=== PATIENT | female | born 1950 | race Two or more races ===

== ENCOUNTER 2016-03-20 21:13 | Inpatient (IN) | payer MEDICARE ==
[~2016-03-20] VITALS: Ht 160 cm; Wt 118.6 kg
[~2016-03-20 21:13] MED LIST: ACETTAB85 PO; ALEN70TA55 PO; CYCL5TAB PO; DIG0125T PO; FOLI1TAB51 PO; GABA300C8 PO; GUA5DMLQ PO; LEVA1.2512 IN; LEVO500T3 PO; METO25TA5 PO; PANT1INJ3 PO; PROM25TA5 PO; RIVA20TA PO; ROPI2TAB4 OR; SERT-160 OR; SIMBICORT PO; TEMA30CA PO
[2016-03-20 22:05] LABS: Basophils # (auto) 0.1 uL; Basophils % (auto) 0.5 % (0.0-2.0); DEFINITIVE VIEW TRANSMISSION; Eosinophils # (auto) 0 uL; Eosinophils % (auto) 0.2 % (0.0-7.0); Hematocrit 35.8 % (36.0-46.0); Hemoglobin 11.5 g/dL (12.2-16.2); Lymphocytes # (auto) 2.8 uL; Lymphocytes % (auto) 26.4 % (10.0-50.0); Mean Corpuscular Hemoglobin 29.7 pg (28.0-32.0); Mean Corpuscular Hgb Conc. 32.1 g/dL (32.0-36.0); Mean Corpuscular Volume 92.3 fL (80.0-100.0); Mean Platelet Volume 6.8 fL (7.4-10.4); Monocytes # (auto) 0.3 uL; Monocytes % (auto) 2.8 % (0.0-12.0); Neutrophils # (auto) 7.4 uL; Neutrophils % (auto) 70.1 % (37.0-80.0); Platelet Count (auto) 368 10^3/uL (140-450); Red Cell Distribution Width 19.6 % (11.6-16.0); White Blood Cell 10.5 10^3/uL (4.4-10.8)
[2016-03-20 22:24] LABS: Albumin 3.5 g/dL (3.4-5.0); BUN/Creatinine Ratio 17.1; Calcium 8.4 mg/dL (8.5-10.1); Magnesium 2.3 mg/dL (1.6-2.6); Potassium 4.5 mmol/L (3.5-5.1); Stomatocytes Few
[2016-03-20 22:25] LABS: Anisocytosis Slight; Ovalocytes FEW; Platelet Estimate Adequate
[2016-03-20 22:31] LABS: B-Type Natriuretic Peptide 27.47 pg/mL (0-100)
[2016-03-20 22:36] LABS: Bilirubin, Total 0.4 mg/dL (0.2-1.0); Total Protein 6.1 g/dL (6.4-8.2)
[2016-03-20 22:40] LABS: INR 1.14 (0.9-1.15)
[2016-03-20] MEDS ORDERED: methylPREDNISolone SOD SUCC 125 MG/2 ML VL IV ONE (23:00)
[2016-03-21] MEDS ORDERED: ONDANSETRON HCL 4 MG/2 ML VIAL IV ONE (01:15)
[2016-03-21] MEDS ORDERED: MORPHINE SULFATE 4 MG/ML SYRG IV ONE (01:15)
[2016-03-21] MEDS ORDERED: METOPROLOL TARTRATE 50 MG TAB PO ONE (01:45)
[2016-03-21] MEDS ORDERED: CYCLOBENZAPRINE HCL 10 MG TAB PO PRN (07:15)
[2016-03-21] MEDS ORDERED: ONDANSETRON HCL 4 MG/2 ML VIAL IV PRN (07:15)
[2016-03-21] MEDS ORDERED: ACETAMINOPHEN 325 MG TAB PO PRN (07:15)
[2016-03-21] MEDS ORDERED: TEMAZEPAM 15 MG CAP PO PRN (07:15)
[2016-03-21] MEDS ORDERED: MORPHINE SULF INJ 2 MG/ML SYRINGE 1ML IV PRN (07:15)
[2016-03-21 09:15] VITALS: BP 120/55
[2016-03-21] MEDS: cefTRIAXone 1GM/50ML D5W 50 ML IV SCH (09:15)
[2016-03-21] MEDS ORDERED: PATIENTS OWN MEDICATION (xarelto 20 MG) PO SCH (10:00)
[2016-03-21] MEDS ORDERED: METOPROLOL TARTRATE 25 MG TAB PO SCH (10:00)
[2016-03-21] MEDS: PANTOPRAZOLE 40 MG TAB PO SCH (10:50)
[2016-03-21] MEDS: SERTRALINE HCL 50 MG TAB PO SCH (10:50)
[2016-03-21] MEDS: ASPirin 81 mg TAB PO SCH (10:51)
[2016-03-21] MEDS: HYDROcodone-ACET 5/325MG TAB PO PRN ×2 (10:51→17:04)
[2016-03-21] MEDS: DIGOXIN 0.125 MG TAB PO SCH (10:52)
[2016-03-21] MEDS ORDERED: D5W 5% 1,000 ML IV SCH (12:00)
[2016-03-21 13:00] VITALS: BP 114/69
[2016-03-21] MEDS: GABAPENTIN 300 MG CAP PO SCH ×2 (13:58→22:34)
[2016-03-21] MEDS: methylPREDNISolone SOD SUCC 40 MG/ML VL IV SCH ×2 (13:59→22:33)
[2016-03-21] MEDS: IPRATROPIUM BROM 0.5 MG/2.5ML INH SOL NEB PRN ×2 (16:30→22:19)
[2016-03-21] MEDS: ALBUTEROL SULF 2.5 MG/0.5ML(0.5%) NEB SOLN NEB PRN ×2 (16:30→22:19)
[2016-03-21 17:00] VITALS: BP 137/69
[2016-03-21] MEDS: RIVAROXABAN 15 MG TAB PO SCH (17:56)
[2016-03-21] MEDS ORDERED: RIVAROXABAN 20 MG TAB PO SCH (18:00)
[2016-03-21] MEDS ORDERED: DILTIAZEM HCL 25 MG/5 ML VIAL IV ONE (20:15)
[2016-03-21 22:00] VITALS: BP 140/80
[2016-03-22] VITALS (9 sets, daily range): BP systolic 116–143; BP diastolic 62–81
[2016-03-22] MEDS: IPRATROPIUM BROM 0.5 MG/2.5ML INH SOL NEB PRN ×4 (03:47→14:20)
[2016-03-22] MEDS: ALBUTEROL SULF 2.5 MG/0.5ML(0.5%) NEB SOLN NEB PRN ×4 (03:47→14:20)
[2016-03-22] MEDS ORDERED: FUROSEMIDE 20 MG/2 ML VIAL IV ONE (04:00)
[2016-03-22] MEDS: GABAPENTIN 300 MG CAP PO SCH ×4 (05:45→22:23)
[2016-03-22] MEDS: methylPREDNISolone SOD SUCC 40 MG/ML VL IV SCH ×3 (05:46→22:25)
[2016-03-22 05:53] LABS: Basophils # (auto) 0 uL; Basophils % (auto) 0.1 % (0.0-2.0); DEFINITIVE VIEW TRANSMISSION; Eosinophils # (auto) 0 uL; Hematocrit 36.3 % (36.0-46.0); Hemoglobin 11.6 g/dL (12.2-16.2); Lymphocytes # (auto) 0.8 uL; Lymphocytes % (auto) 4.2 % (10.0-50.0); Mean Corpuscular Hemoglobin 29.9 pg (28.0-32.0); Mean Corpuscular Volume 93.3 fL (80.0-100.0); Mean Platelet Volume 7.2 fL (7.4-10.4); Monocytes # (auto) 0.4 uL; Monocytes % (auto) 2.3 % (0.0-12.0); Neutrophils # (auto) 16.7 uL; Neutrophils % (auto) 93.4 % (37.0-80.0); Platelet Count (auto) 375 10^3/uL (140-450); Red Cell Distribution Width 19.3 % (11.6-16.0); White Blood Cell 17.9 10^3/uL (4.4-10.8)
[2016-03-22 06:05] LABS: INR 1.03 (0.9-1.15); Prothrombin Time 10.6 sec (9.37-12.3)
[2016-03-22 06:10] LABS: Albumin 3.4 g/dL (3.4-5.0); BUN/Creatinine Ratio 22.1; Bilirubin, Total 0.3 mg/dL (0.2-1.0); Calcium 8.5 mg/dL (8.5-10.1); Magnesium 2.4 mg/dL (1.6-2.6); Potassium 4.2 mmol/L (3.5-5.1); Total Protein 6.5 g/dL (6.4-8.2)
[2016-03-22] MEDS: cefTRIAXone 1GM/50ML D5W 50 ML IV SCH (08:35)
[2016-03-22] MEDS: DIGOXIN 0.125 MG TAB PO SCH (09:40)
[2016-03-22] MEDS: METOPROLOL TARTRATE 50 MG TAB PO SCH ×3 (09:40→22:24)
[2016-03-22] MEDS: PANTOPRAZOLE 40 MG TAB PO SCH (09:41)
[2016-03-22] MEDS: SERTRALINE HCL 50 MG TAB PO SCH (09:41)
[2016-03-22] MEDS: ASPirin 81 mg TAB PO SCH (09:41)
[2016-03-22] MEDS: NITROGLYCERIN 0.4 MG SL TAB SL PRN ×3 (10:11→10:32)
[2016-03-22] MEDS: RIVAROXABAN 15 MG TAB PO SCH (18:03)
[2016-03-22] MEDS ORDERED: FUROSEMIDE 40 MG/4 ML VIAL IV ONE (23:15)
[2016-03-23] VITALS (7 sets, daily range): BP systolic 123–143; BP diastolic 59–81
[2016-03-23] MEDS: methylPREDNISolone SOD SUCC 40 MG/ML VL IV SCH ×3 (06:55→22:09)
[2016-03-23] MEDS: GABAPENTIN 300 MG CAP PO SCH ×3 (06:55→22:09)
[2016-03-23 07:09] LABS: Basophils # (auto) 0 uL; Eosinophils # (auto) 0 uL; Hematocrit 35.1 % (36.0-46.0); Hemoglobin 11.3 g/dL (12.2-16.2); Lymphocytes # (auto) 0.7 uL; Lymphocytes % (auto) 4.9 % (10.0-50.0); Mean Corpuscular Hemoglobin 29.9 pg (28.0-32.0); Mean Corpuscular Hgb Conc. 32.2 g/dL (32.0-36.0); Mean Corpuscular Volume 92.7 fL (80.0-100.0); Mean Platelet Volume 7.5 fL (7.4-10.4); Monocytes # (auto) 0.2 uL; Monocytes % (auto) 1.2 % (0.0-12.0); Neutrophils # (auto) 13.1 uL; Neutrophils % (auto) 93.9 % (37.0-80.0); Platelet Count (auto) 311 10^3/uL (140-450); Red Cell Distribution Width 18.6 % (11.6-16.0)
[2016-03-23 07:13] LABS: INR 1.02 (0.9-1.15); Prothrombin Time 10.5 sec (9.37-12.3)
[2016-03-23 07:22] LABS: Calcium 8.5 mg/dL (8.5-10.1); Magnesium 2.6 mg/dL (1.6-2.6); Potassium 3.7 mmol/L (3.5-5.1)
[2016-03-23 07:24] LABS: BUN/Creatinine Ratio 26.6
[2016-03-23] MEDS: ALBUTEROL SULF 2.5 MG/0.5ML(0.5%) NEB SOLN NEB PRN (07:51)
[2016-03-23] MEDS: IPRATROPIUM BROM 0.5 MG/2.5ML INH SOL NEB PRN (07:51)
[2016-03-23] MEDS: cefTRIAXone 1GM/50ML D5W 50 ML IV SCH (08:59)
[2016-03-23] MEDS: SERTRALINE HCL 50 MG TAB PO SCH (10:04)
[2016-03-23] MEDS: ASPirin 81 mg TAB PO SCH (10:04)
[2016-03-23] MEDS: PANTOPRAZOLE 40 MG TAB PO SCH (10:04)
[2016-03-23] MEDS: DIGOXIN 0.125 MG TAB PO SCH (10:04)
[2016-03-23] MEDS: METOPROLOL TARTRATE 50 MG TAB PO SCH ×2 (10:05→22:10)
[2016-03-23] MEDS: HYDROcodone-ACET 5/325MG TAB PO PRN ×4 (10:09→22:09)
[2016-03-23] MEDS: RIVAROXABAN 15 MG TAB PO SCH (18:18)
[2016-03-24] VITALS (9 sets, daily range): BP systolic 115–137; BP diastolic 58–74
[2016-03-24] MEDS: ALBUTEROL SULF 2.5 MG/0.5ML(0.5%) NEB SOLN NEB SCH ×4 (00:10→18:00)
[2016-03-24] MEDS: ACETYLCYSTEINE 10 %(100MG/ML) SOL 4ML NEB SCH ×4 (00:10→18:00)
[2016-03-24] MEDS: IPRATROPIUM BROM 0.5 MG/2.5ML INH SOL NEB SCH ×4 (00:10→18:00)
[2016-03-24] MEDS: HYDROcodone-ACET 5/325MG TAB PO PRN (04:58)
[2016-03-24] MEDS: GABAPENTIN 300 MG CAP PO SCH ×3 (06:00→22:21)
[2016-03-24] MEDS: methylPREDNISolone SOD SUCC 40 MG/ML VL IV SCH ×3 (06:00→22:21)
[2016-03-24 07:05] LABS: BUN/Creatinine Ratio 28.9; Calcium 8.5 mg/dL (8.5-10.1); Magnesium 2.7 mg/dL (1.6-2.6)
[2016-03-24 07:14] LABS: INR 1.09 (0.9-1.15); Prothrombin Time 11.2 sec (9.37-12.3)
[2016-03-24 07:35] LABS: Basophils # (auto) 0 uL; Eosinophils # (auto) 0 uL; Eosinophils % (auto) 0.1 % (0.0-7.0); Hematocrit 34.8 % (36.0-46.0); Hemoglobin 11.1 g/dL (12.2-16.2); Lymphocytes # (auto) 0.6 uL; Lymphocytes % (auto) 5.6 % (10.0-50.0); Mean Corpuscular Hemoglobin 29.8 pg (28.0-32.0); Mean Corpuscular Hgb Conc. 31.9 g/dL (32.0-36.0); Mean Corpuscular Volume 93.4 fL (80.0-100.0); Mean Platelet Volume 7.7 fL (7.4-10.4); Monocytes # (auto) 0.2 uL; Monocytes % (auto) 2.2 % (0.0-12.0); Neutrophils # (auto) 10.2 uL; Neutrophils % (auto) 92.1 % (37.0-80.0); Platelet Count (auto) 339 10^3/uL (140-450); Red Cell Distribution Width 18.9 % (11.6-16.0); White Blood Cell 11.1 10^3/uL (4.4-10.8)
[2016-03-24] MEDS: cefTRIAXone 1GM/50ML D5W 50 ML IV SCH (08:52)
[2016-03-24] MEDS: ASPirin 81 mg TAB PO SCH (09:52)
[2016-03-24] MEDS: SERTRALINE HCL 50 MG TAB PO SCH (09:52)
[2016-03-24] MEDS: METOPROLOL TARTRATE 50 MG TAB PO SCH ×2 (09:52→22:21)
[2016-03-24] MEDS: DIGOXIN 0.125 MG TAB PO SCH (09:52)
[2016-03-24] MEDS: PANTOPRAZOLE 40 MG TAB PO SCH (09:52)
[2016-03-24] MEDS: RIVAROXABAN 15 MG TAB PO SCH (18:01)
[2016-03-25] MEDS: IPRATROPIUM BROM 0.5 MG/2.5ML INH SOL NEB SCH ×4 (01:08→19:29)
[2016-03-25] MEDS: ACETYLCYSTEINE 10 %(100MG/ML) SOL 4ML NEB SCH ×4 (01:08→19:29)
[2016-03-25] MEDS: ALBUTEROL SULF 2.5 MG/0.5ML(0.5%) NEB SOLN NEB SCH ×4 (01:09→19:29)
[2016-03-25 04:50] VITALS: BP 106/67
[2016-03-25 06:11] LABS: Potassium 4.1 mmol/L (3.5-5.1)
[2016-03-25 06:12] LABS: Basophils # (auto) 0 uL; Eosinophils # (auto) 0 uL; Hematocrit 34.7 % (36.0-46.0); Hemoglobin 11.1 g/dL (12.2-16.2); Lymphocytes # (auto) 0.6 uL; Lymphocytes % (auto) 6.4 % (10.0-50.0); Mean Corpuscular Hemoglobin 29.6 pg (28.0-32.0); Mean Corpuscular Hgb Conc. 32.1 g/dL (32.0-36.0); Mean Corpuscular Volume 92.1 fL (80.0-100.0); Mean Platelet Volume 7.6 fL (7.4-10.4); Monocytes # (auto) 0.2 uL; Monocytes % (auto) 2.4 % (0.0-12.0); Neutrophils # (auto) 9.1 uL; Neutrophils % (auto) 91.2 % (37.0-80.0); Platelet Count (auto) 301 10^3/uL (140-450); Red Cell Distribution Width 18.3 % (11.6-16.0); White Blood Cell 9.9 10^3/uL (4.4-10.8)
[2016-03-25 06:14] LABS: BUN/Creatinine Ratio 27.6
[2016-03-25] MEDS: GABAPENTIN 300 MG CAP PO SCH ×3 (06:21→21:46)
[2016-03-25] MEDS: methylPREDNISolone SOD SUCC 40 MG/ML VL IV SCH ×3 (06:22→21:46)
[2016-03-25] MEDS: PANTOPRAZOLE 40 MG TAB PO SCH (08:36)
[2016-03-25] MEDS: ASPirin 81 mg TAB PO SCH (08:36)
[2016-03-25] MEDS: cefTRIAXone 1GM/50ML D5W 50 ML IV SCH (08:36)
[2016-03-25] MEDS: SERTRALINE HCL 50 MG TAB PO SCH (08:36)
[2016-03-25] MEDS: DIGOXIN 0.125 MG TAB PO SCH (08:40)
[2016-03-25] MEDS: METOPROLOL TARTRATE 50 MG TAB PO SCH ×2 (08:41→21:47)
[2016-03-25 09:00] VITALS: BP 128/78
[2016-03-25] MEDS ORDERED: CLINDAMYCIN 300MG IV 50 ML IV SCH (11:00)
[2016-03-25 13:29] VITALS: BP 142/93
[2016-03-25 17:00] VITALS: BP 131/66
[2016-03-25] MEDS: RIVAROXABAN 15 MG TAB PO SCH (17:39)
[2016-03-25] MEDS: CLINDAMYCIN 300MG IV 50 ML IV SCH (17:39)
[2016-03-25 21:54] VITALS: BP 125/68
[2016-03-26] MEDS: ACETYLCYSTEINE 10 %(100MG/ML) SOL 4ML NEB SCH ×4 (00:42→19:27)
[2016-03-26] MEDS: IPRATROPIUM BROM 0.5 MG/2.5ML INH SOL NEB SCH ×4 (00:42→19:27)
[2016-03-26] MEDS: ALBUTEROL SULF 2.5 MG/0.5ML(0.5%) NEB SOLN NEB SCH ×4 (00:42→19:27)
[2016-03-26] MEDS: CLINDAMYCIN 300MG IV 50 ML IV SCH ×3 (02:35→18:06)
[2016-03-26 04:46] VITALS: BP 159/93
[2016-03-26 06:26] LABS: Basophils # (auto) 0 uL; Basophils % (auto) 0.4 % (0.0-2.0); Eosinophils # (auto) 0 uL; Hemoglobin 11.5 g/dL (12.2-16.2); Lymphocytes # (auto) 0.8 uL; Lymphocytes % (auto) 8.6 % (10.0-50.0); Mean Corpuscular Hemoglobin 29.5 pg (28.0-32.0); Mean Corpuscular Hgb Conc. 32.1 g/dL (32.0-36.0); Mean Platelet Volume 7.6 fL (7.4-10.4); Monocytes # (auto) 0.2 uL; Monocytes % (auto) 1.6 % (0.0-12.0); Neutrophils # (auto) 8.2 uL; Neutrophils % (auto) 89.4 % (37.0-80.0); Platelet Count (auto) 289 10^3/uL (140-450); Red Cell Distribution Width 18.3 % (11.6-16.0); White Blood Cell 9.2 10^3/uL (4.4-10.8)
[2016-03-26 06:41] LABS: Albumin 2.8 g/dL (3.4-5.0); BUN/Creatinine Ratio 34.7; Potassium 4.4 mmol/L (3.5-5.1)
[2016-03-26 06:44] LABS: Bilirubin, Total 0.2 mg/dL (0.2-1.0); Total Protein 5.8 g/dL (6.4-8.2)
[2016-03-26] MEDS: GABAPENTIN 300 MG CAP PO SCH ×3 (06:49→21:34)
[2016-03-26] MEDS: methylPREDNISolone SOD SUCC 40 MG/ML VL IV SCH ×3 (06:49→21:34)
[2016-03-26 08:19] VITALS: BP 158/90
[2016-03-26] MEDS: cefTRIAXone 1GM/50ML D5W 50 ML IV SCH (08:24)
[2016-03-26] MEDS: SERTRALINE HCL 50 MG TAB PO SCH (08:31)
[2016-03-26] MEDS: ASPirin 81 mg TAB PO SCH (08:31)
[2016-03-26] MEDS: PANTOPRAZOLE 40 MG TAB PO SCH (08:31)
[2016-03-26] MEDS: DIGOXIN 0.125 MG TAB PO SCH (08:31)
[2016-03-26] MEDS: METOPROLOL TARTRATE 50 MG TAB PO SCH ×2 (08:31→21:34)
[2016-03-26 12:40] VITALS: BP 154/74
[2016-03-26 16:41] VITALS: BP 140/72
[2016-03-26] MEDS: RIVAROXABAN 15 MG TAB PO SCH (18:06)
[2016-03-26] MEDS: HYDROcodone-ACET 5/325MG TAB PO PRN (19:55)
[2016-03-26 21:56] VITALS: BP 139/71
[2016-03-27] MEDS: CLINDAMYCIN 300MG IV 50 ML IV SCH ×3 (01:45→12:46)
[2016-03-27] MEDS: ALBUTEROL SULF 2.5 MG/0.5ML(0.5%) NEB SOLN NEB SCH ×3 (02:00→13:22)
[2016-03-27] MEDS: IPRATROPIUM BROM 0.5 MG/2.5ML INH SOL NEB SCH ×3 (02:00→13:22)
[2016-03-27] MEDS: ACETYLCYSTEINE 10 %(100MG/ML) SOL 4ML NEB SCH ×3 (02:00→13:22)
[2016-03-27 04:38] VITALS: BP 154/79
[2016-03-27 05:39] LABS: Basophils # (auto) 0 uL; Eosinophils # (auto) 0 uL; Hematocrit 35.5 % (36.0-46.0); Hemoglobin 11.4 g/dL (12.2-16.2); Lymphocytes # (auto) 0.7 uL; Lymphocytes % (auto) 7.5 % (10.0-50.0); Mean Corpuscular Hemoglobin 29.3 pg (28.0-32.0); Mean Corpuscular Volume 91.4 fL (80.0-100.0); Mean Platelet Volume 7.4 fL (7.4-10.4); Monocytes # (auto) 0 uL; Monocytes % (auto) 0.5 % (0.0-12.0); Neutrophils # (auto) 8.6 uL; Platelet Count (auto) 285 10^3/uL (140-450); Red Cell Distribution Width 18.4 % (11.6-16.0); White Blood Cell 9.4 10^3/uL (4.4-10.8)
[2016-03-27 06:11] LABS: Potassium 4.7 mmol/L (3.5-5.1)
[2016-03-27] MEDS: methylPREDNISolone SOD SUCC 40 MG/ML VL IV SCH ×2 (06:11→14:47)
[2016-03-27] MEDS: GABAPENTIN 300 MG CAP PO SCH ×2 (06:11→14:47)
[2016-03-27 06:14] LABS: Albumin 2.8 g/dL (3.4-5.0); BUN/Creatinine Ratio 34.7; Calcium 8.1 mg/dL (8.5-10.1)
[2016-03-27 06:18] LABS: Bilirubin, Total 0.3 mg/dL (0.2-1.0); Total Protein 5.7 g/dL (6.4-8.2)
[2016-03-27 08:24] VITALS: BP 135/75
[2016-03-27] MEDS: METOPROLOL TARTRATE 50 MG TAB PO SCH ×2 (10:05→12:48)
[2016-03-27] MEDS: ASPirin 81 mg TAB PO SCH ×2 (10:05→12:46)
[2016-03-27] MEDS: SERTRALINE HCL 50 MG TAB PO SCH ×2 (10:05→12:48)
[2016-03-27] MEDS: DIGOXIN 0.125 MG TAB PO SCH ×2 (10:05→12:47)
[2016-03-27] MEDS: PANTOPRAZOLE 40 MG TAB PO SCH ×2 (10:05→12:48)
[2016-03-27] MEDS: cefTRIAXone 1GM/50ML D5W 50 ML IV SCH ×2 (10:05→12:46)
[2016-03-27 13:43] VITALS: BP 149/76
[2016-03-27 16:33] VITALS: BP 149/76
[2016-03-27 16:49] VITALS: BP 148/67
[2016-03-27] MEDS: RIVAROXABAN 15 MG TAB PO SCH (18:00)
== END 2016-03-27 17:40 | disposition home or self-care (01) | DRG 205 ==
LOC: EDBD 21:13 → ER 21:23 → TELE 21:24 → TELE-EAST 03-21 07:54
PROVIDERS: ADMIT Internal Medicine; ATTEND Internal Medicine
PROC: 5A09457 Assistance with Respiratory Ventilation, 24-96 Consecutive Hours, Continuous Positive Airway Pressure (ICD-10-PCS; principal; 2016-03-22)
DX: M94.0 Chondrocostal junction syndrome [Tietze] (principal); J96.20 Acute and chronic respiratory failure, unspecified whether with hypoxia or hypercapnia; J44.1 Chronic obstructive pulmonary disease with (acute) exacerbation; Z68.41 Body mass index [BMI] 40.0-44.9, adult; D68.69 Other thrombophilia; I48.1 Persistent atrial fibrillation; I48.92 Unspecified atrial flutter; I13.0 Hypertensive heart and chronic kidney disease with heart failure and stage 1 through stage 4 chronic kidney disease, or unspecified chronic kidney disease; J45.901 Unspecified asthma with (acute) exacerbation; J44.0 Chronic obstructive pulmonary disease with (acute) lower respiratory infection; N18.3 Chronic kidney disease, stage 3 (moderate); E66.01 Morbid (severe) obesity due to excess calories; F32.9 Major depressive disorder, single episode, unspecified; F41.9 Anxiety disorder, unspecified; D63.8 Anemia in other chronic diseases classified elsewhere; J20.9 Acute bronchitis, unspecified; E78.5 Hyperlipidemia, unspecified; I27.2 Other secondary pulmonary hypertension; I50.9 Heart failure, unspecified; Z87.891 Personal history of nicotine dependence; Z99.81 Dependence on supplemental oxygen; Z86.73 Personal history of transient ischemic attack (TIA), and cerebral infarction without residual deficits; Z86.718 Personal history of other venous thrombosis and embolism; Z82.49 Family history of ischemic heart disease and other diseases of the circulatory system; Z83.3 Family history of diabetes mellitus; Z80.3 Family history of malignant neoplasm of breast; Z80.0 Family history of malignant neoplasm of digestive organs; Z88.1 Allergy status to other antibiotic agents; I48.0 Paroxysmal atrial fibrillation; R07.89 Other chest pain
CPT/HCPCS: 36415; 36600; 71010; 80048; 80053; 80162; 82805; 83735; 83880; 84484; 85025; 85379; 85610; 85730; 87081; 93005; 94640; 94660; 96374; 96375; 97110; 97116; 97530; J0696; J2405; J3490

== ENCOUNTER 2017-02-23 10:54 | Emergency (ER) | payer MEDICARE, MEDICAID ==
[~2017-02-23] VITALS: Ht 160 cm; Wt 105.2 kg
[~2017-02-23 10:54] MED LIST changes: -ACETTAB85 PO; -ALEN70TA55 PO; +DEXTSYP8 PO; +DIGO1TAB35 PO; +DOX100T PO; +FURO20TA3 PO; +GABA-497 PO; -GABA300C8 PO; -GUA5DMLQ PO; -LEVO500T3 PO; +METO-516 PO; +METO25TA3 PO; +ONDA4TAB5 PO; +POTA10TA79 PO; -PROM25TA5 PO; -ROPI2TAB4 OR; -SERT-160 OR; +SIMV-13 PO; +TRAM50TA2 PO
[2017-02-23 11:32] LABS: Urine Bilirubin Negative (Negative); Urine Blood Negative /uL (Negative); Urine Color Yellow (Yellow); Urine Glucose Normal (Normal); Urine Ketone Negative (Negative); Urine Nitrite Negative (Negative); Urine RBC 2 /hpf (0 - 4); Urine Squamous Epithelial Cell FEW /hpf (<5); Urine Urobilinogen Normal (Negative)
[2017-02-23] MEDS ORDERED: KETOROLAC TROMETH 30 MG/ML 1ML VIAL IV ONE (11:45)
[2017-02-23] MEDS ORDERED: ONDANSETRON HCL 4 MG/2 ML VIAL IV ONE (11:45)
[2017-02-23] MEDS ORDERED: SODIUM CHLORIDE 0.9% 1,000 ML IV ONE (11:45)
[2017-02-23 12:41] LABS: Basophils # (auto) 0.2 uL; Basophils % (auto) 2.7 % (0.0-2.0); Eosinophils # (auto) 0.1 uL; Eosinophils % (auto) 1.6 % (0.0-7.0); Hematocrit 38.5 % (36.0-46.0); Hemoglobin 12.3 g/dL (12.2-16.2); Lymphocytes % (auto) 32.9 % (10.0-50.0); Mean Corpuscular Hemoglobin 27.5 pg (28.0-32.0); Mean Corpuscular Hgb Conc. 32.1 g/dL (32.0-36.0); Mean Corpuscular Volume 85.6 fL (80.0-100.0); Mean Platelet Volume 7.1 fL (6.9-10.8); Monocytes # (auto) 0.3 uL; Monocytes % (auto) 5.5 % (0.0-12.0); Neutrophils # (auto) 3.4 uL; Neutrophils % (auto) 57.3 % (37.0-80.0); Nucleated Red Blood Cells % 0.1 %; Platelet Count (auto) 182 10^3/uL (140-450); Red Cell Distribution Width 18.3 % (11.8-14.3); White Blood Cell 5.9 10^3/uL (4.4-10.8)
[2017-02-23 13:05] LABS: Albumin 3.2 g/dL (3.4-5.0); BUN/Creatinine Ratio 19.8; Bilirubin, Total 0.6 mg/dL (0.2-1.0); Calcium 8.5 mg/dL (8.5-10.1); Potassium 4.2 mmol/L (3.5-5.1); Total Protein 6.5 g/dL (6.4-8.2)
[2017-02-23 13:32] VITALS: BP 111/73
== END 2017-02-23 13:42 | disposition home or self-care (01) ==
LOC: ER 10:54
DX: K80.20 Calculus of gallbladder without cholecystitis without obstruction (principal); J44.1 Chronic obstructive pulmonary disease with (acute) exacerbation; I48.91 Unspecified atrial fibrillation; I13.0 Hypertensive heart and chronic kidney disease with heart failure and stage 1 through stage 4 chronic kidney disease, or unspecified chronic kidney disease; N18.9 Chronic kidney disease, unspecified; I50.9 Heart failure, unspecified; E78.5 Hyperlipidemia, unspecified; Z95.0 Presence of cardiac pacemaker; Z88.1 Allergy status to other antibiotic agents
CPT/HCPCS: 36415; 74176; 80053; 81001; 85025; 93005; 96361; 96374; 96375; 99285; J1885; J2405; J7030

== ENCOUNTER 2017-06-05 15:24 | Emergency (ER) | payer MEDICARE, MEDICAID ==
[~2017-06-05] VITALS: Ht 160 cm; Wt 104.3 kg
[~2017-06-05 15:24] MED LIST changes: +DEXT1SYP9 PO; -DEXTSYP8 PO; -GABA-497 PO; +GABA300C10 PO
[2017-06-05 16:04] VITALS: BP 125/58
[2017-06-05 16:57] LABS: BUN/Creatinine Ratio 14.7; Bilirubin, Total 0.7 mg/dL (0.2-1.0); Calcium 8.6 mg/dL (8.5-10.1); Potassium 4.8 mmol/L (3.5-5.1); Total Protein 6.4 g/dL (6.4-8.2)
[2017-06-05 17:05] LABS: Basophils # (auto) 0.1 uL; Basophils % (auto) 0.9 % (0.0-2.0); Eosinophils # (auto) 0.1 uL; Eosinophils % (auto) 1.6 % (0.0-7.0); Hematocrit 36.9 % (36.0-46.0); Lymphocytes # (auto) 2.2 uL; Lymphocytes % (auto) 27.5 % (10.0-50.0); Mean Corpuscular Hgb Conc. 32.4 g/dL (32.0-36.0); Mean Corpuscular Volume 86.4 fL (80.0-100.0); Monocytes # (auto) 0.6 uL; Monocytes % (auto) 7.9 % (0.0-12.0); Neutrophils # (auto) 4.9 uL; Neutrophils % (auto) 62.1 % (37.0-80.0); Nucleated Red Blood Cells % 0.3 %; Platelet Count (auto) 202 10^3/uL (140-450); Red Blood Cells 4.27 10^6/uL (4.0-5.20); Red Cell Distribution Width 19.5 % (11.8-14.3); White Blood Cell 7.9 10^3/uL (4.4-10.8)
== END 2017-06-05 18:02 | disposition home or self-care (01) ==
LOC: EDBD 15:24 → ER 15:31
DX: G89.4 Chronic pain syndrome (principal); I11.0 Hypertensive heart disease with heart failure; I50.9 Heart failure, unspecified; J44.9 Chronic obstructive pulmonary disease, unspecified; I48.91 Unspecified atrial fibrillation; E78.5 Hyperlipidemia, unspecified; Z95.0 Presence of cardiac pacemaker; Z98.890 Other specified postprocedural states; Z87.442 Personal history of urinary calculi; Z88.1 Allergy status to other antibiotic agents
CPT/HCPCS: 36415; 71045; 73030; 80053; 85025; 93005

== ENCOUNTER 2019-04-21 18:58 | Emergency (ER) | payer MEDICARE, MEDICAID ==
[~2019-04-21] VITALS: Ht 160 cm; Wt 108.9 kg
[~2019-04-21 18:58] MED LIST changes: +ALBU0.084 IN; +CARB200T4 PO; +CARV6.2551 PO; +CHOL20007 PO; -CYCL5TAB PO; -DEXT1SYP9 PO; -DIG0125T PO; -DOX100T PO; +GABA-339 PO; -GABA300C10 PO; +HYDR-4798 PO; -LEVA1.2512 IN; +LEVO500T21 PO; +MELO1TAB56 PO; -METO-516 PO; -METO25TA3 PO; +METO25TA36 PO; -METO25TA5 PO; -ONDA4TAB5 PO; +POTA-180 PO; -POTA10TA79 PO; +ROPI1TAB PO; -SIMV-13 PO; -TRAM50TA2 PO
[2019-04-21 19:46] VITALS: BP 114/43
[2019-04-21 20:23] LABS: Basophils # (auto) 0 uL; Eosinophils # (auto) 0 uL; Hematocrit 33.5 % (36.0-46.0); Hemoglobin 10.9 g/dL (12.2-16.2); Monocytes # (auto) 0.4 uL; Neutrophils # (auto) 3.1 uL; Red Cell Distribution Width 17.8 % (11.8-14.3)
[2019-04-21 20:25] LABS: Basophils % (auto) 0.9 % (0.0-2.0); Lymphocytes # (auto) 0.6 uL; Lymphocytes % (auto) 14.2 % (10.0-50.0); Mean Corpuscular Hemoglobin 26.4 pg (28.0-32.0); Mean Corpuscular Hgb Conc. 32.7 g/dL (32.0-36.0); Neutrophils % (auto) 74.9 % (37.0-80.0); Nucleated Red Blood Cells % 0.2 %; Platelet Count (auto) 205 10^3/uL (140-450); Red Blood Cells 4.13 10^6/uL (4.0-5.20); White Blood Cell 4.1 10^3/uL (4.4-10.8)
[2019-04-21 20:40] LABS: Alanine Aminotransferase 14 U/L (13-56); Albumin 3.2 g/dL (3.4-5.0); Anion Gap 9 (5-15); Aspartate Aminotransferase 17 U/L (15-37); BUN/Creatinine Ratio 13.7; Blood Urea Nitrogen 14 mg/dL (7-18); Carbon Dioxide 25 mmol/L (21-32); Chloride 107 mmol/L (98-107); GFR African American 69 mL/min; GFR Non-African American 57 mL/min; Glucose 103 mg/dL (74-106); Potassium 3.4 mmol/L (3.5-5.1); Sodium 141 mmol/L (136-145)
[2019-04-21 20:42] LABS: Alkaline Phosphatase 87 U/L (45-117); Bilirubin, Total 0.2 mg/dL (0.2-1.0); Total Protein 6.4 g/dL (6.4-8.2)
== END 2019-04-21 22:41 | disposition left against medical advice (07) ==
LOC: ER 18:58
DX: R50.9 Fever, unspecified (principal); Z53.21 Procedure and treatment not carried out due to patient leaving prior to being seen by health care provider
CPT/HCPCS: 36415; 71045; 80053; 83605; 83880; 85025

== ENCOUNTER 2021-08-18 15:14 | Inpatient (IN) | payer MEDICARE, MEDICAID ==
[~2021-08-18] VITALS: Ht 157.5 cm; Wt 127.7 kg
[~2021-08-18 15:14] MED LIST changes: -LEVO500T21 PO; +LEVO500T31 PO; -MELO1TAB56 PO; -SIMBICORT PO
[2021-08-18] MEDS ORDERED: SODIUM CHLORIDE 0.9% 1,000 ML IV ONE (20:00)
[2021-08-18 20:38] LABS: Hematocrit 27.4 % (36.0-46.0); Mean Corpuscular Volume 75.3 fL (80.0-100.0); White Blood Cell 7.4 10^3/uL (4.4-10.8)
[2021-08-18 20:39] LABS: Basophils # (auto) 0.1 10 ^3/uL (0-0.2); Basophils % (auto) 1.5 % (0.0-2.0); Eosinophils # (auto) 0 10 ^3/uL (0-0.8); Eosinophils % (auto) 0.2 % (0.0-7.0); Hemoglobin 8.4 g/dL (12.2-16.2); Lymphocytes # (auto) 0.5 10 ^3/uL (0.4-5.4); Lymphocytes % (auto) 7.4 % (10.0-50.0); Mean Corpuscular Hemoglobin 23.2 pg (28.0-32.0); Mean Corpuscular Hgb Conc. 30.8 g/dL (32.0-36.0); Monocytes # (auto) 0.2 10 ^3/uL (0-1.3); Monocytes % (auto) 3.3 % (0.0-12.0); Neutrophils # (auto) 6.5 10 ^3/uL (1.6-8.6); Neutrophils % (auto) 87.6 % (37.0-80.0); Red Blood Cells 3.64 10^6/uL (4.0-5.20); Red Cell Distribution Width 19.9 % (11.8-14.3)
[2021-08-18 20:58] LABS: Albumin 3.4 g/dL (3.4-5.0); BUN/Creatinine Ratio 21.4; Calcium 8.3 mg/dL (8.5-10.1); Potassium 4.3 mmol/L (3.5-5.1)
[2021-08-18 21:01] LABS: Bilirubin, Total 0.3 mg/dL (0.2-1.0); Total Protein 6.3 g/dL (6.4-8.2)
[2021-08-18] MEDS ORDERED: FUROSEMIDE 40 MG/4 ML VIAL IV ONE (21:15)
[2021-08-18] MEDS ORDERED: ONDANSETRON HCL 4 MG/2 ML VIAL IV PRN (22:15)
[2021-08-18] MEDS ORDERED: ACETAMINOPHEN 325 MG TAB PO PRN (22:15)
[2021-08-18] MEDS ORDERED: HYDROcodone-ACET 5/325MG TAB PO PRN (22:15)
[2021-08-18] MEDS ORDERED: DOCUSATE SOD 100 MG CAP PO PRN (22:15)
[2021-08-18 22:18] VITALS: BP 134/58
[2021-08-18 22:44] LABS: Urine Bacteria NONE SEEN /hpf (None Seen); Urine Blood Negative /uL (Negative); Urine Hyaline Cast FEW /lpf (0 - 2); Urine Mucus FEW (None Seen); Urine Specific Gravity 1.008 (1.001-1.035); Urine WBC <1 /hpf (0 - 5)
[2021-08-18 22:53] LABS: INR 1.1 (0.9-1.15)
[2021-08-19] MEDS ORDERED: NITROGLYCERIN 0.4 MG SL TAB SL PRN
[2021-08-19] MEDS ORDERED: MORPHINE SULFATE INJ 2 MG/ml SYRG IV PRN
[2021-08-19] MEDS: SODIUM CHLOR 0.9% PF (SALINE LOCK) 10ML VIAL/SYR IV SCH ×3 (06:00→21:34)
[2021-08-19] MEDS ORDERED: ALBUTEROL SULF HFA 90MCG INH 200DOSE IN SCH (06:00)
[2021-08-19] MEDS: FUROSEMIDE 20 MG/2 ML VIAL IV SCH ×2 (06:00→18:00)
[2021-08-19 07:06] LABS: Basophils # (auto) 0.1 10 ^3/uL (0-0.2); Eosinophils # (auto) 0.1 10 ^3/uL (0-0.8); Hemoglobin 8.4 g/dL (12.2-16.2); Monocytes # (auto) 0.4 10 ^3/uL (0-1.3); Neutrophils # (auto) 4.4 10 ^3/uL (1.6-8.6); Nucleated Red Blood Cells % 0.1 %
[2021-08-19 07:09] LABS: Basophils % (auto) 1.2 % (0.0-2.0); Eosinophils % (auto) 1.3 % (0.0-7.0); Lymphocytes # (auto) 1.1 10 ^3/uL (0.4-5.4); Lymphocytes % (auto) 18.8 % (10.0-50.0); Mean Corpuscular Hemoglobin 23.6 pg (28.0-32.0); Mean Corpuscular Hgb Conc. 31.1 g/dL (32.0-36.0); Mean Corpuscular Volume 75.8 fL (80.0-100.0); Neutrophils % (auto) 72.7 % (37.0-80.0); Red Blood Cells 3.57 10^6/uL (4.0-5.20); White Blood Cell 6.1 10^3/uL (4.4-10.8)
[2021-08-19 07:22] LABS: Albumin 3.3 g/dL (3.4-5.0); Calcium 8.4 mg/dL (8.5-10.1); Potassium 3.8 mmol/L (3.5-5.1)
[2021-08-19 07:26] LABS: BUN/Creatinine Ratio 22.8; Bilirubin, Total 0.3 mg/dL (0.2-1.0)
[2021-08-19] MEDS: CARVEDILOL 3.125 MG TAB PO SCH ×2 (10:00→21:38)
[2021-08-19] MEDS ORDERED: APIXABAN 5 MG TAB PO SCH (10:00)
[2021-08-19] MEDS ORDERED: FAMOTIDINE (10MG/ML) 2ML VL IV SCH (10:00)
[2021-08-19] MEDS ORDERED: methylPREDNISolone SOD SUCC 40 MG/ML VL IV ONE (11:00)
[2021-08-19] MEDS: ALBUTEROL SULF 2.5 MG/0.5ML(0.5%) NEB SOLN NEB PRN (11:38)
[2021-08-19] MEDS: FOLIC ACID 1 MG TAB PO SCH (12:30)
[2021-08-19] MEDS: MULTIPLE VITAMIN TAB PO SCH (12:31)
[2021-08-19 13:00] VITALS: BP 126/51
[2021-08-19] MEDS ORDERED: ROSU5TAB5 PO (14:43)
[2021-08-19] MEDS ORDERED: FLUO-125 PO (14:43)
[2021-08-19] MEDS ORDERED: FURO20TA3 PO (14:43)
[2021-08-19] MEDS ORDERED: PRED10TA PO (15:15)
[2021-08-19] MEDS ORDERED: DILT-29 PO (15:15)
[2021-08-19 17:00] VITALS: BP 113/47
[2021-08-19] MEDS ORDERED: RIVAROXABAN 20 MG TAB PO SCH (18:00)
[2021-08-19] MEDS: MORPHINE SULFATE INJ 2 MG/ml SYRG IV PRN (18:06)
[2021-08-19] MEDS ORDERED: IPRATROPIUM BROM 0.5 MG/2.5ML INH SOL NEB PRN (18:30)
[2021-08-19] MEDS: AZITHROMYCIN 250 MG TAB PO ONE ×2 (19:00→21:34)
[2021-08-19] MEDS: methylPREDNISolone SOD SUCC 40 MG/ML VL IV SCH (21:35)
[2021-08-19] MEDS: carBAMazepine 200 MG TAB PO SCH (21:36)
[2021-08-19] MEDS: FLUoxetine HCL 20 MG CAP PO SCH (21:36)
[2021-08-19 21:44] VITALS: BP 107/47
[2021-08-20 05:00] VITALS: BP 149/60
[2021-08-20] MEDS: FUROSEMIDE 20 MG/2 ML VIAL IV SCH (05:31)
[2021-08-20] MEDS: SODIUM CHLOR 0.9% PF (SALINE LOCK) 10ML VIAL/SYR IV SCH ×2 (05:32→14:33)
[2021-08-20] MEDS: MORPHINE SULFATE INJ 2 MG/ml SYRG IV PRN (06:26)
[2021-08-20 08:00] VITALS: BP 143/46
[2021-08-20] MEDS: ALBUTEROL SULF 2.5 MG/0.5ML(0.5%) NEB SOLN NEB PRN (08:01)
[2021-08-20 09:00] VITALS: BP 143/46
[2021-08-20] MEDS: carBAMazepine 200 MG TAB PO SCH (09:31)
[2021-08-20] MEDS: MULTIPLE VITAMIN TAB PO SCH (09:31)
[2021-08-20] MEDS: FOLIC ACID 1 MG TAB PO SCH (09:31)
[2021-08-20] MEDS: CARVEDILOL 3.125 MG TAB PO SCH (09:32)
[2021-08-20] MEDS: FLUoxetine HCL 20 MG CAP PO SCH (09:32)
[2021-08-20] MEDS: methylPREDNISolone SOD SUCC 40 MG/ML VL IV SCH (09:33)
[2021-08-20] MEDS ORDERED: AZITHROMYCIN 250 MG TAB PO SCH (10:00)
[2021-08-20] MEDS ORDERED: POTASSIUM CHL 20 Meq TABLET PO SCH (10:00)
[2021-08-20] MEDS ORDERED: PANTOPRAZOLE 40 MG TAB PO SCH (10:00)
[2021-08-20] MEDS ORDERED: METOPROLOL SUCCINATE XL 50 MG TAB PO SCH (10:00)
[2021-08-20 13:00] VITALS: BP 141/49
[2021-08-20] MEDS ORDERED: AZIT250T9 PO (13:58)
[2021-08-20 14:48] VITALS: BP 141/49
[2021-08-20 17:00] VITALS: BP 125/64
== END 2021-08-20 17:36 | disposition home or self-care (01) | DRG 291 ==
LOC: ER 15:14 → EDBD 15:14 → TELE 23:57 → TELE-WESTW 08-19 08:27
PROVIDERS: ADMIT Nurse Practitioner Family; ATTEND Internal Medicine
DX: I13.0 Hypertensive heart and chronic kidney disease with heart failure and stage 1 through stage 4 chronic kidney disease, or unspecified chronic kidney disease (principal); N17.0 Acute kidney failure with tubular necrosis; J96.21 Acute and chronic respiratory failure with hypoxia; I50.43 Acute on chronic combined systolic (congestive) and diastolic (congestive) heart failure; J44.1 Chronic obstructive pulmonary disease with (acute) exacerbation; D68.69 Other thrombophilia; Z68.43 Body mass index [BMI] 50.0-59.9, adult; I42.9 Cardiomyopathy, unspecified; I48.91 Unspecified atrial fibrillation; E66.01 Morbid (severe) obesity due to excess calories; E78.5 Hyperlipidemia, unspecified; Z20.822 Contact with and (suspected) exposure to COVID-19; I34.0 Nonrheumatic mitral (valve) insufficiency; N18.9 Chronic kidney disease, unspecified
CPT/HCPCS: 36415; 71045; 71250; 80053; 80162; 81001; 83880; 84484; 85025; 85379; 85610; 86850; 86900; 86901; 93005; 93306; 94640; 96374; 96375; G0378; J3490

== ENCOUNTER 2022-01-27 21:51 | Inpatient (IN) | payer MEDICARE, MEDICAID ==
[~2022-01-27] VITALS: Ht 154.9 cm; Wt 126.0 kg
[~2022-01-27 21:51] MED LIST changes: +AZIT250T9 PO; +DILT-29 PO; +FLUO-125 PO; +PRED10TA PO; +ROSU5TAB5 PO
[2022-01-27] MEDS ORDERED: SODIUM CHLORIDE 0.9% 500 ML IV ONE (22:30)
[2022-01-27 22:56] LABS: Basophils # (auto) 0.1 10 ^3/uL (0-0.2); Eosinophils # (auto) 0.1 10 ^3/uL (0-0.8); Hemoglobin 8.1 g/dL (12.2-16.2); Lymphocytes # (auto) 1.2 10 ^3/uL (0.4-5.4); Mean Corpuscular Volume 70.5 fL (80.0-100.0); Monocytes # (auto) 0.6 10 ^3/uL (0-1.3); Neutrophils # (auto) 6.3 10 ^3/uL (1.6-8.6)
[2022-01-27 22:57] LABS: Basophils % (auto) 0.9 % (0.0-2.0); Eosinophils % (auto) 0.8 % (0.0-7.0); Lymphocytes % (auto) 14.4 % (10.0-50.0); Mean Corpuscular Hemoglobin 20.5 pg (28.0-32.0); Mean Corpuscular Hgb Conc. 29.1 g/dL (32.0-36.0); Monocytes % (auto) 7.1 % (0.0-12.0); Neutrophils % (auto) 76.8 % (37.0-80.0); Red Blood Cells 3.98 10^6/uL (4.0-5.20); White Blood Cell 8.3 10^3/uL (4.4-10.8)
[2022-01-27 23:12] LABS: Albumin 3.5 g/dL (3.4-5.0); BUN/Creatinine Ratio 19.1; Calcium 8.2 mg/dL (8.5-10.1); Potassium 3.6 mmol/L (3.5-5.1)
[2022-01-27 23:15] LABS: Bilirubin, Total 0.2 mg/dL (0.2-1.0); Total Protein 5.6 g/dL (6.4-8.2)
[2022-01-28] MEDS ORDERED: MORPHINE SULFATE INJ 2 MG/ml SYRG IV PRN (01:45)
[2022-01-28] MEDS ORDERED: DOCUSATE SOD 100 MG CAP PO PRN (01:45)
[2022-01-28] MEDS ORDERED: ONDANSETRON HCL 4 MG/2 ML VIAL IV PRN (01:45)
[2022-01-28] MEDS ORDERED: NITROGLYCERIN 0.4 MG SL TAB SL PRN (01:45)
[2022-01-28] MEDS ORDERED: ACETAMINOPHEN 325 MG TAB PO PRN (01:45)
[2022-01-28 02:27] LABS: Basophils # (auto) 0.1 10 ^3/uL (0-0.2); Eosinophils # (auto) 0.1 10 ^3/uL (0-0.8); Monocytes # (auto) 0.4 10 ^3/uL (0-1.3); Nucleated Red Blood Cells % 0.1 %
[2022-01-28 02:29] LABS: Basophils % (auto) 1.9 % (0.0-2.0); Hematocrit 27.6 % (36.0-46.0); Hemoglobin 8.1 g/dL (12.2-16.2); Lymphocytes # (auto) 1.3 10 ^3/uL (0.4-5.4); Lymphocytes % (auto) 18.4 % (10.0-50.0); Mean Corpuscular Hemoglobin 20.6 pg (28.0-32.0); Mean Corpuscular Hgb Conc. 29.2 g/dL (32.0-36.0); Mean Corpuscular Volume 70.5 fL (80.0-100.0); Monocytes % (auto) 5.5 % (0.0-12.0); Neutrophils # (auto) 5.2 10 ^3/uL (1.6-8.6); Neutrophils % (auto) 73.2 % (37.0-80.0); Red Blood Cells 3.91 10^6/uL (4.0-5.20); White Blood Cell 7.1 10^3/uL (4.4-10.8)
[2022-01-28 02:30] LABS: Red Cell Distribution Width 23.3 % (11.8-14.3)
[2022-01-28 02:37] LABS: Albumin 3.3 g/dL (3.4-5.0); BUN/Creatinine Ratio 21.4; Potassium 3.4 mmol/L (3.5-5.1)
[2022-01-28 02:40] LABS: Bilirubin, Total 0.3 mg/dL (0.2-1.0); Total Protein 5.8 g/dL (6.4-8.2)
[2022-01-28] MEDS: HYDROcodone-ACET 5/325MG TAB PO PRN (06:18)
[2022-01-28] MEDS: SODIUM CHLOR 0.9% PF (SALINE LOCK) 10ML VIAL/SYR IV SCH ×3 (06:19→22:00)
[2022-01-28] MEDS ORDERED: APIXABAN 5 MG TAB PO SCH (10:00)
[2022-01-28] MEDS: MULTIPLE VITAMIN TAB PO SCH (10:45)
[2022-01-28] MEDS: FLUoxetine HCL 20 MG CAP PO SCH (10:46)
[2022-01-28] MEDS: FAMOTIDINE (10MG/ML) 2ML VL IV SCH (10:46)
[2022-01-28] MEDS ORDERED: POTASSIUM EFFERVESENT TAB 25 MEQ PO ONE (12:30)
[2022-01-28 15:49] LABS: Magnesium 2.2 mg/dL (1.6-2.6)
[2022-01-28] MEDS ORDERED: RIVAROXABAN 20 MG TAB PO SCH (18:00)
[2022-01-28] MEDS: IPRATROPIUM BROM 0.5 MG/2.5ML INH SOL NEB PRN (20:37)
[2022-01-28] MEDS: ALBUTEROL SULF 2.5 MG/0.5ML(0.5%) NEB SOLN NEB PRN (20:37)
[2022-01-28 23:30] VITALS: BP 124/41
[2022-01-29 00:40] VITALS: BP 120/45
[2022-01-29] MEDS ORDERED: SACC250C PO (01:30)
[2022-01-29] MEDS ORDERED: ROPI12TA2 PO (01:30)
[2022-01-29] MEDS ORDERED: RIVSET PO (01:30)
[2022-01-29] MEDS ORDERED: METH4TAB7 PO (01:30)
[2022-01-29] MEDS ORDERED: CEFD300C2 PO (01:30)
[2022-01-29] MEDS ORDERED: FURO1TAB31 PO (01:30)
[2022-01-29] MEDS ORDERED: FERR-20 PO (01:30)
[2022-01-29] MEDS ORDERED: CHOL20007 OR (01:30)
[2022-01-29] MEDS ORDERED: HYDR-4798 PO (01:30)
[2022-01-29] MEDS ORDERED: FLUT0.05 NAS (01:30)
[2022-01-29] MEDS ORDERED: CARB200T4 PO (01:34)
[2022-01-29] MEDS ORDERED: GABA-339 PO (01:34)
[2022-01-29 04:43] VITALS: BP 125/42
[2022-01-29] MEDS: SODIUM CHLOR 0.9% PF (SALINE LOCK) 10ML VIAL/SYR IV SCH ×3 (05:07→22:29)
[2022-01-29] MEDS: FAMOTIDINE (10MG/ML) 2ML VL IV SCH (08:33)
[2022-01-29] MEDS: FLUoxetine HCL 20 MG CAP PO SCH (08:33)
[2022-01-29] MEDS: HYDROcodone-ACET 5/325MG TAB PO PRN (08:33)
[2022-01-29] MEDS: MULTIPLE VITAMIN TAB PO SCH (08:33)
[2022-01-29 09:00] VITALS: BP 125/41
[2022-01-29 10:13] LABS: Albumin 3.4 g/dL (3.4-5.0); Potassium 4.2 mmol/L (3.5-5.1)
[2022-01-29 10:16] LABS: BUN/Creatinine Ratio 23.3; Bilirubin, Total 0.3 mg/dL (0.2-1.0); Total Protein 5.9 g/dL (6.4-8.2)
[2022-01-29 10:19] LABS: Basophils # (auto) 0.1 10 ^3/uL (0-0.2); Mean Corpuscular Volume 70.3 fL (80.0-100.0); Monocytes # (auto) 0.5 10 ^3/uL (0-1.3); White Blood Cell 6.7 10^3/uL (4.4-10.8)
[2022-01-29 10:21] LABS: Basophils % (auto) 0.9 % (0.0-2.0); Eosinophils # (auto) 0.1 10 ^3/uL (0-0.8); Eosinophils % (auto) 2.2 % (0.0-7.0); Hematocrit 30.4 % (36.0-46.0); Hemoglobin 8.7 g/dL (12.2-16.2); Lymphocytes # (auto) 1.1 10 ^3/uL (0.4-5.4); Lymphocytes % (auto) 15.7 % (10.0-50.0); Mean Corpuscular Hgb Conc. 28.5 g/dL (32.0-36.0); Neutrophils % (auto) 74.2 % (37.0-80.0); Red Blood Cells 4.33 10^6/uL (4.0-5.20)
[2022-01-29 10:25] LABS: Red Cell Distribution Width 22.9 % (11.8-14.3)
[2022-01-29 13:00] VITALS: BP 129/85
[2022-01-29] MEDS ORDERED: carBAMazepine 200 MG TAB PO ONE (14:45)
[2022-01-29] MEDS ORDERED: GABAPENTIN 300 MG CAP PO ONE (14:45)
[2022-01-29] MEDS ORDERED: ONDANSETRON HCL 4 MG/2 ML VIAL IV PRN (15:00)
[2022-01-29] MEDS ORDERED: LORazepam 0.5 MG TAB PO PRN (15:00)
[2022-01-29] MEDS ORDERED: ACETAMINOPHEN 500 MG TAB PO PRN (15:00)
[2022-01-29] MEDS ORDERED: traMADol HCL 50 MG TAB PO PRN (15:00)
[2022-01-29] MEDS ORDERED: ALBUTEROL SULFATE 0.083% IN SCH (15:00)
[2022-01-29] MEDS ORDERED: PANTOPRAZOLE 40 MG/10 ML VIAL INJ IV ONE (16:00)
[2022-01-29] MEDS: SODIUM CHLORIDE 0.9% 1,000 ML IV SCH (16:56)
[2022-01-29] MEDS ORDERED: TEMAZEPAM 15 MG CAP PO SCH (18:00)
[2022-01-29 18:08] LABS: Hemoglobin 8.3 g/dL (12.2-16.2)
[2022-01-29 18:10] LABS: Hematocrit 28.4 % (36.0-46.0)
[2022-01-29 22:00] VITALS: BP 137/57
[2022-01-29] MEDS ORDERED: TEMAZEPAM 15 MG CAP PO PRN (22:00)
[2022-01-29] MEDS ORDERED: FLUoxetine HCL 20 MG CAP PO SCH (22:00)
[2022-01-29] MEDS: metroNIDAZOLE 500MG/100ML 100 ML IV SCH (22:29)
[2022-01-29] MEDS: ATORVASTATIN 20 MG TAB PO SCH (22:29)
[2022-01-29] MEDS: PANTOPRAZOLE 40 MG TAB PO SCH (22:30)
[2022-01-29] MEDS: GABAPENTIN 300 MG CAP PO SCH (22:30)
[2022-01-29] MEDS: carBAMazepine 200 MG TAB PO SCH (22:31)
[2022-01-30 01:47] LABS: Hematocrit 27.3 % (36.0-46.0); Hemoglobin 8.2 g/dL (12.2-16.2)
[2022-01-30] MEDS: SODIUM CHLORIDE 0.9% 1,000 ML IV SCH ×2 (04:29→18:58)
[2022-01-30 05:00] VITALS: BP 141/51
[2022-01-30 06:54] LABS: Basophils # (auto) 0.1 10 ^3/uL (0-0.2); Basophils % (auto) 1.5 % (0.0-2.0); Eosinophils # (auto) 0.1 10 ^3/uL (0-0.8); Eosinophils % (auto) 2.5 % (0.0-7.0); Hemoglobin 8.3 g/dL (12.2-16.2); Lymphocytes % (auto) 19.8 % (10.0-50.0); Mean Corpuscular Hemoglobin 20.4 pg (28.0-32.0); Mean Corpuscular Hgb Conc. 29.6 g/dL (32.0-36.0); Mean Corpuscular Volume 68.9 fL (80.0-100.0); Monocytes # (auto) 0.3 10 ^3/uL (0-1.3); Monocytes % (auto) 6.8 % (0.0-12.0); Neutrophils # (auto) 3.4 10 ^3/uL (1.6-8.6); Neutrophils % (auto) 69.4 % (37.0-80.0); Nucleated Red Blood Cells % 0.1 %; Red Blood Cells 4.07 10^6/uL (4.0-5.20); White Blood Cell 4.9 10^3/uL (4.4-10.8)
[2022-01-30 07:08] LABS: Red Cell Distribution Width 22.8 % (11.8-14.3)
[2022-01-30 07:09] LABS: Albumin 3.2 g/dL (3.4-5.0); Calcium 8.5 mg/dL (8.5-10.1)
[2022-01-30 07:12] LABS: BUN/Creatinine Ratio 20.2; Bilirubin, Total 0.3 mg/dL (0.2-1.0); Total Protein 5.5 g/dL (6.4-8.2)
[2022-01-30] MEDS: metroNIDAZOLE 500MG/100ML 100 ML IV SCH ×3 (08:01→21:39)
[2022-01-30] MEDS: SODIUM CHLOR 0.9% PF (SALINE LOCK) 10ML VIAL/SYR IV SCH ×3 (08:01→21:46)
[2022-01-30 08:42] VITALS: BP 122/42
[2022-01-30] MEDS ORDERED: DIGOXIN 0.125 MG TAB PO SCH (10:00)
[2022-01-30] MEDS: FAMOTIDINE (10MG/ML) 2ML VL IV SCH (10:10)
[2022-01-30] MEDS: carBAMazepine 200 MG TAB PO SCH ×2 (10:11→21:44)
[2022-01-30] MEDS: MULTIPLE VITAMIN TAB PO SCH (10:11)
[2022-01-30] MEDS: PANTOPRAZOLE 40 MG TAB PO SCH (10:12)
[2022-01-30] MEDS: GABAPENTIN 300 MG CAP PO SCH ×2 (10:12→21:44)
[2022-01-30] MEDS: FOLIC ACID 1 MG TAB PO SCH (10:12)
[2022-01-30] MEDS: MORPHINE SULFATE INJ 2 MG/ml SYRG IV PRN ×2 (10:23→15:22)
[2022-01-30] MEDS ORDERED: TEMAZEPAM 15 MG CAP PO PRN (12:15)
[2022-01-30 13:13] VITALS: BP 127/51
[2022-01-30 14:15] LABS: Urine Bacteria NONE SEEN /hpf (None Seen); Urine Blood Negative /uL (Negative); Urine Specific Gravity 1.008 (1.001-1.035); Urine WBC <1 /hpf (0 - 5)
[2022-01-30 17:00] VITALS: BP 121/40
[2022-01-30] MEDS: IPRATROPIUM BROM 0.5 MG/2.5ML INH SOL NEB PRN (19:07)
[2022-01-30] MEDS: ALBUTEROL SULF 2.5 MG/0.5ML(0.5%) NEB SOLN NEB PRN (19:07)
[2022-01-30] MEDS: ATORVASTATIN 20 MG TAB PO SCH (21:43)
[2022-01-30 22:00] VITALS: BP 155/77
[2022-01-31 00:35] LABS: Urine Bacteria FEW /hpf (None Seen); Urine Blood Negative /uL (Negative); Urine Specific Gravity 1.005 (1.001-1.035); Urine WBC 1 /hpf (0 - 5)
[2022-01-31] MEDS: SODIUM CHLORIDE 0.9% 1,000 ML IV SCH ×2 (01:50→14:55)
[2022-01-31] MEDS: MORPHINE SULFATE INJ 2 MG/ml SYRG IV PRN (04:08)
[2022-01-31 05:00] VITALS: BP 122/46
[2022-01-31] MEDS: metroNIDAZOLE 500MG/100ML 100 ML IV SCH ×3 (05:36→22:08)
[2022-01-31] MEDS: SODIUM CHLOR 0.9% PF (SALINE LOCK) 10ML VIAL/SYR IV SCH ×2 (05:44→16:29)
[2022-01-31 07:19] LABS: Basophils # (auto) 0 10 ^3/uL (0-0.2); Eosinophils # (auto) 0.1 10 ^3/uL (0-0.8); Hemoglobin 7.6 g/dL (12.2-16.2); Lymphocytes # (auto) 0.7 10 ^3/uL (0.4-5.4); Monocytes # (auto) 0.4 10 ^3/uL (0-1.3); Neutrophils # (auto) 3.3 10 ^3/uL (1.6-8.6); White Blood Cell 4.6 10^3/uL (4.4-10.8)
[2022-01-31 07:22] LABS: Hematocrit 25.9 % (36.0-46.0); Lymphocytes % (auto) 15.9 % (10.0-50.0); Mean Corpuscular Hemoglobin 20.5 pg (28.0-32.0); Mean Corpuscular Hgb Conc. 29.2 g/dL (32.0-36.0); Mean Corpuscular Volume 70.3 fL (80.0-100.0); Monocytes % (auto) 7.9 % (0.0-12.0); Neutrophils % (auto) 72.2 % (37.0-80.0); Nucleated Red Blood Cells % 0.1 %; Red Blood Cells 3.68 10^6/uL (4.0-5.20)
[2022-01-31 07:27] LABS: Red Cell Distribution Width 23.3 % (11.8-14.3)
[2022-01-31 07:28] LABS: INR 0.96 (0.9-1.15); Partial Thromboplastin Time 22.2 sec (24.6-33.4)
[2022-01-31 07:42] LABS: BUN/Creatinine Ratio 15.3; Calcium 8.3 mg/dL (8.5-10.1); Potassium 4.1 mmol/L (3.5-5.1)
[2022-01-31 07:55] VITALS: BP 112/37
[2022-01-31] MEDS: carBAMazepine 200 MG TAB PO SCH ×2 (09:48→22:02)
[2022-01-31] MEDS: FOLIC ACID 1 MG TAB PO SCH (09:48)
[2022-01-31] MEDS: PANTOPRAZOLE 40 MG/10 ML VIAL INJ IV SCH (09:48)
[2022-01-31] MEDS: GABAPENTIN 300 MG CAP PO SCH ×2 (09:48→22:02)
[2022-01-31] MEDS: MULTIPLE VITAMIN TAB PO SCH (09:49)
[2022-01-31 12:35] VITALS: BP 121/42
[2022-01-31 16:25] VITALS: BP 133/61
[2022-01-31 18:30] VITALS: BP 133/61
[2022-01-31 22:00] VITALS: BP 124/44
[2022-01-31] MEDS: ATORVASTATIN 20 MG TAB PO SCH (22:03)
[2022-01-31] MEDS: SODIUM FERR GLUC 62.5MG/5ML 125 MG in SODIUM CHL 0.9% 100 ML IV SCH (22:36)
[2022-02-01] VITALS (7 sets, daily range): BP systolic 113–145; BP diastolic 33–49
[2022-02-01] MEDS: SODIUM CHLOR 0.9% PF (SALINE LOCK) 10ML VIAL/SYR IV SCH ×4 (02:31→22:31)
[2022-02-01] MEDS: SODIUM CHLORIDE 0.9% 1,000 ML IV SCH ×2 (03:56→12:23)
[2022-02-01] MEDS: metroNIDAZOLE 500MG/100ML 100 ML IV SCH ×3 (06:20→22:18)
[2022-02-01 06:34] LABS: Basophils # (auto) 0.1 10 ^3/uL (0-0.2); Basophils % (auto) 2.4 % (0.0-2.0); Eosinophils # (auto) 0.1 10 ^3/uL (0-0.8); Eosinophils % (auto) 3.8 % (0.0-7.0); Hematocrit 25.6 % (36.0-46.0); Hemoglobin 7.4 g/dL (12.2-16.2); Lymphocytes # (auto) 0.8 10 ^3/uL (0.4-5.4); Lymphocytes % (auto) 19.5 % (10.0-50.0); Mean Corpuscular Hemoglobin 20.8 pg (28.0-32.0); Mean Corpuscular Hgb Conc. 28.8 g/dL (32.0-36.0); Mean Corpuscular Volume 72.2 fL (80.0-100.0); Monocytes # (auto) 0.3 10 ^3/uL (0-1.3); Monocytes % (auto) 8.7 % (0.0-12.0); Neutrophils # (auto) 2.5 10 ^3/uL (1.6-8.6); Neutrophils % (auto) 65.6 % (37.0-80.0); Nucleated Red Blood Cells % 0.1 %; Red Blood Cells 3.54 10^6/uL (4.0-5.20); White Blood Cell 3.9 10^3/uL (4.4-10.8)
[2022-02-01 06:50] LABS: Red Cell Distribution Width 22.5 % (11.8-14.3)
[2022-02-01] MEDS ORDERED: SODIUM CHLORIDE LOCK 10 ML ONE (09:08)
[2022-02-01] MEDS ORDERED: LIDOCAINE VISCOUS 2% 15ML UD ONE (09:08)
[2022-02-01] MEDS ORDERED: MIDAZOLAM HCL 5 MG/ML-1ML VIAL ONE (09:08)
[2022-02-01] MEDS ORDERED: fentaNYL CITRATE 100 MCG/2 ML VL ONE (09:08)
[2022-02-01] MEDS ORDERED: diphenhdrAMINE HCL 50 MG/1 ML VL ONE (09:08)
[2022-02-01] MEDS: FOLIC ACID 1 MG TAB PO SCH (10:09)
[2022-02-01] MEDS: carBAMazepine 200 MG TAB PO SCH ×2 (10:10→22:18)
[2022-02-01] MEDS: GABAPENTIN 300 MG CAP PO SCH ×2 (10:10→22:18)
[2022-02-01] MEDS: PANTOPRAZOLE 40 MG/10 ML VIAL INJ IV SCH (10:10)
[2022-02-01] MEDS: MULTIPLE VITAMIN TAB PO SCH (10:10)
[2022-02-01] MEDS: SODIUM FERR GLUC 62.5MG/5ML 125 MG in SODIUM CHL 0.9% 100 ML IV SCH (12:48)
[2022-02-01] MEDS ORDERED: SODIUM FERR GLUC 62.5MG/5ML 125 MG in SODIUM CHL 0.9% 100 ML IV ONE (16:00)
[2022-02-01] MEDS: FERROUS SULFATE 325mg EC TAB PO SCH (18:40)
[2022-02-01 21:28] LABS: Urine Bacteria FEW /hpf (None Seen); Urine Blood Negative /uL (Negative); Urine Mucus FEW (None Seen); Urine Specific Gravity 1.014 (1.001-1.035); Urine WBC 1 /hpf (0 - 5)
[2022-02-01] MEDS: ATORVASTATIN 20 MG TAB PO SCH (22:18)
[2022-02-02 05:00] VITALS: BP 116/47
[2022-02-02] MEDS: SODIUM CHLOR 0.9% PF (SALINE LOCK) 10ML VIAL/SYR IV SCH ×2 (05:49→14:00)
[2022-02-02] MEDS: metroNIDAZOLE 500MG/100ML 100 ML IV SCH ×2 (05:51→14:00)
[2022-02-02] MEDS: SODIUM CHLORIDE 0.9% 1,000 ML IV SCH (07:45)
[2022-02-02 08:22] LABS: Basophils # (auto) 0 10 ^3/uL (0-0.2); Basophils % (auto) 1.3 % (0.0-2.0); Eosinophils # (auto) 0.1 10 ^3/uL (0-0.8); Monocytes # (auto) 0.3 10 ^3/uL (0-1.3)
[2022-02-02 08:24] LABS: Eosinophils % (auto) 3.4 % (0.0-7.0); Hematocrit 26.6 % (36.0-46.0); Hemoglobin 7.7 g/dL (12.2-16.2); Lymphocytes # (auto) 0.6 10 ^3/uL (0.4-5.4); Lymphocytes % (auto) 18.5 % (10.0-50.0); Mean Corpuscular Hgb Conc. 28.8 g/dL (32.0-36.0); Monocytes % (auto) 7.7 % (0.0-12.0); Neutrophils # (auto) 2.4 10 ^3/uL (1.6-8.6); Neutrophils % (auto) 69.1 % (37.0-80.0); Nucleated Red Blood Cells % 0.1 %; Red Blood Cells 3.64 10^6/uL (4.0-5.20); White Blood Cell 3.4 10^3/uL (4.4-10.8)
[2022-02-02 08:37] LABS: Red Cell Distribution Width 22.9 % (11.8-14.3)
[2022-02-02 09:30] VITALS: BP 133/65
[2022-02-02] MEDS: GABAPENTIN 300 MG CAP PO SCH (09:56)
[2022-02-02] MEDS: FERROUS SULFATE 325mg EC TAB PO SCH ×2 (09:56→18:00)
[2022-02-02] MEDS: MULTIPLE VITAMIN TAB PO SCH (09:56)
[2022-02-02] MEDS: PANTOPRAZOLE 40 MG/10 ML VIAL INJ IV SCH (09:56)
[2022-02-02] MEDS: carBAMazepine 200 MG TAB PO SCH (09:56)
[2022-02-02] MEDS: FOLIC ACID 1 MG TAB PO SCH (09:56)
[2022-02-02] MEDS: SODIUM FERR GLUC 62.5MG/5ML 125 MG in SODIUM CHL 0.9% 100 ML IV SCH (11:56)
[2022-02-02 12:43] VITALS: BP 136/47
[2022-02-02 13:01] VITALS: BP 136/47
[2022-02-02] MEDS: IPRATROPIUM BROM 0.5 MG/2.5ML INH SOL NEB PRN (15:23)
[2022-02-02] MEDS: ALBUTEROL SULF 2.5 MG/0.5ML(0.5%) NEB SOLN NEB PRN (15:23)
[2022-02-02 16:57] VITALS: BP 118/42
== END 2022-02-02 18:04 | disposition home or self-care (01) | DRG 377 ==
LOC: ER 21:51 → TELE 01-28 01:55 → TELE-WESTW 01-28 23:33
PROVIDERS: ADMIT Nurse Practitioner Family; ATTEND Internal Medicine
PROC: 0DB68ZX Excision of Stomach, Via Natural or Artificial Opening Endoscopic, Diagnostic (ICD-10-PCS; 2022-02-01)
PROC: 30233N1 Transfusion of Nonautologous Red Blood Cells into Peripheral Vein, Percutaneous Approach (ICD-10-PCS; 2022-02-01)
PROC: 0DB98ZX Excision of Duodenum, Via Natural or Artificial Opening Endoscopic, Diagnostic (ICD-10-PCS; principal; 2022-02-01 15:33)
DX: K92.2 Gastrointestinal hemorrhage, unspecified (principal); N17.0 Acute kidney failure with tubular necrosis; I50.32 Chronic diastolic (congestive) heart failure; J96.10 Chronic respiratory failure, unspecified whether with hypoxia or hypercapnia; D68.69 Other thrombophilia; I13.0 Hypertensive heart and chronic kidney disease with heart failure and stage 1 through stage 4 chronic kidney disease, or unspecified chronic kidney disease; Z68.43 Body mass index [BMI] 50.0-59.9, adult; I95.9 Hypotension, unspecified; D63.1 Anemia in chronic kidney disease; D50.9 Iron deficiency anemia, unspecified; I48.0 Paroxysmal atrial fibrillation; Z20.822 Contact with and (suspected) exposure to COVID-19; E87.6 Hypokalemia; I25.10 Atherosclerotic heart disease of native coronary artery without angina pectoris; E66.01 Morbid (severe) obesity due to excess calories; G25.81 Restless legs syndrome; E78.00 Pure hypercholesterolemia, unspecified; J44.9 Chronic obstructive pulmonary disease, unspecified; Z96.619 Presence of unspecified artificial shoulder joint; K76.0 Fatty (change of) liver, not elsewhere classified; K80.20 Calculus of gallbladder without cholecystitis without obstruction; M16.11 Unilateral primary osteoarthritis, right hip; N18.9 Chronic kidney disease, unspecified; Z79.01 Long term (current) use of anticoagulants; Z80.0 Family history of malignant neoplasm of digestive organs; Z80.3 Family history of malignant neoplasm of breast; Z82.49 Family history of ischemic heart disease and other diseases of the circulatory system; Z83.3 Family history of diabetes mellitus; Z86.718 Personal history of other venous thrombosis and embolism; Z87.442 Personal history of urinary calculi; Z95.0 Presence of cardiac pacemaker
CPT/HCPCS: 36415; 43239; 71045; 74176; 80048; 80053; 80061; 80162; 81001; 82270; 83036; 83735; 83880; 84443; 84484; 85014; 85018; 85025; 85045; 85610; 85730; 86850; 86900; 86901; 86920; 87081; 87426; 87493; 93005; 94640; 96360; 97163; C9113; G0378; J2250; J3490

== ENCOUNTER → 2022-02-07 | Outpatient (CLI) | payer MEDICARE ==
[~2022-02-07] MED LIST changes: -CARV6.2551 PO; +CEFD300C2 PO; +CHOL20007 OR; -CHOL20007 PO; +FERR-20 PO; +FLUT0.05 NAS; +FURO1TAB31 PO; +METH4TAB7 PO; -RIVA20TA PO; +RIVSET PO; +ROPI12TA2 PO; -ROPI1TAB PO; +SACC250C PO
[2022-02-07 11:28] LABS: Basophils # (auto) 0 10 ^3/uL (0-0.2); Eosinophils # (auto) 0.1 10 ^3/uL (0-0.8); Hemoglobin 9.8 g/dL (12.2-16.2); Monocytes # (auto) 0.3 10 ^3/uL (0-1.3); Nucleated Red Blood Cells % 0.1 %
[2022-02-07 11:30] LABS: Basophils % (auto) 1.3 % (0.0-2.0); Eosinophils % (auto) 2.9 % (0.0-7.0); Hematocrit 32.8 % (36.0-46.0); Lymphocytes # (auto) 0.7 10 ^3/uL (0.4-5.4); Lymphocytes % (auto) 21.3 % (10.0-50.0); Mean Corpuscular Hemoglobin 21.7 pg (28.0-32.0); Mean Corpuscular Hgb Conc. 29.9 g/dL (32.0-36.0); Mean Corpuscular Volume 72.5 fL (80.0-100.0); Monocytes % (auto) 8.7 % (0.0-12.0); Neutrophils # (auto) 2.1 10 ^3/uL (1.6-8.6); Neutrophils % (auto) 65.8 % (37.0-80.0); Red Blood Cells 4.53 10^6/uL (4.0-5.20); Red Cell Distribution Width 24.1 % (11.8-14.3); White Blood Cell 3.2 10^3/uL (4.4-10.8)
== END | disposition home or self-care (01) ==
LOC: LAB 11:07
PROVIDERS: ATTEND Internal Medicine
DX: D64.9 Anemia, unspecified (principal)
CPT/HCPCS: 36415; 85025

== ENCOUNTER 2022-02-16 10:18 | Inpatient (IN) | payer MEDICARE, MEDICAID ==
[~2022-02-16] VITALS: Ht 160 cm; Wt 136.3 kg
[2022-02-16] MEDS ORDERED: MIDAZOLAM DRIP 50 mg/50mL 50 ML IV ONE (10:24)
[2022-02-16] MEDS ORDERED: SUCCINYLCHOLINE CHLORIDE 20 MG/ML 10ML VIAL IV ONE ×2 (10:25→10:45)
[2022-02-16] MEDS ORDERED: ETOMIDATE (2MG/ML) 20ML VIAL IV ONE ×2 (10:25→10:45)
[2022-02-16] MEDS ORDERED: fentaNYL Drip 2500mCg/250mlNS 250 ML IV ONE (10:46)
[2022-02-16] MEDS: MIDAZOLAM DRIP 50 mg/50mL 50 ML IV SCH ×2 (10:56→13:46)
[2022-02-16 11:00] VITALS: BP 158/122
[2022-02-16] MEDS ORDERED: cefTRIAXone 1GM/50ML D5W 50 ML IV ONE (11:00)
[2022-02-16] MEDS ORDERED: SODIUM CHLORIDE 0.9% 1,000 ML IV ONE (11:00)
[2022-02-16] MEDS ORDERED: AZITHROMYCIN 500MG/ 250ML 250 ML IV ONE (11:00)
[2022-02-16] MEDS ORDERED: fentaNYL Drip 2500mCg/250mlNS 250 ML IV SCH ×2 (11:00→13:00)
[2022-02-16] MEDS ORDERED: PROPOFOL 100 ML IV SCH (11:00)
[2022-02-16 11:31] LABS: Hematocrit 20.5 % (36.0-46.0); Mean Corpuscular Hemoglobin 18.7 pg (28.0-32.0); Mean Corpuscular Hgb Conc. 22.1 g/dL (32.0-36.0); Mean Corpuscular Volume 84.4 fL (80.0-100.0); Red Blood Cells 2.43 10^6/uL (4.0-5.20); White Blood Cell 5.1 10^3/uL (4.4-10.8)
[2022-02-16 11:32] LABS: Red Cell Distribution Width 27.3 % (11.8-14.3)
[2022-02-16 11:35] LABS: Band Neutrophils % (manual) 0; Basophils % (manual) 0 (0.0-2.0); Blast Cells 0; Eosinophils % (manual) 0 (0-7); Hemoglobin 4.5 g/dL (12.2-16.2); Metamyelocytes % 0; Myelocytes % 0; Promyelocytes % 0; Reactive Lymphocytes 0
[2022-02-16 11:50] LABS: Alanine Aminotransferase 117 U/L (13-56); Albumin 3.5 g/dL (3.4-5.0); Anion Gap 29 (5-15); Aspartate Aminotransferase 280 U/L (15-37); BUN/Creatinine Ratio 9.5; Blood Alcohol < 3.0 mg/dL (0-5); Blood Urea Nitrogen 32 mg/dL (7-18); Carbon Dioxide 20 mmol/L (21-32); Chloride 89 mmol/L (98-107); GFR African American 17 mL/min; GFR Non-African American 14 mL/min; Glucose 78 mg/dL (74-106); Magnesium 3.3 mg/dL (1.6-2.6); Potassium 4.4 mmol/L (3.5-5.1); Sodium 138 mmol/L (136-145)
[2022-02-16 11:51] LABS: Alkaline Phosphatase 102 U/L (45-117); Bilirubin, Total 0.9 mg/dL (0.2-1.0); Total Protein 6.8 g/dL (6.4-8.2)
[2022-02-16] MEDS ORDERED: NOREPINEPHRINE 8 MG/250ML KIT 250 ML IV SCH (12:00)
[2022-02-16] MEDS ORDERED: SODIUM CHLORIDE 0.9% 1,000 ML IV SCH (12:00)
[2022-02-16] MEDS ORDERED: MORPHINE SULFATE INJ 2 MG/ml SYRG IV PRN (12:00)
[2022-02-16] MEDS ORDERED: NITROGLYCERIN 0.4 MG SL TAB SL PRN (12:00)
[2022-02-16 12:09] LABS: Lactic Acid w/Reflex 16.7 mmol/L (0.4-2.0)
[2022-02-16 12:41] LABS: Lymphocytes % (manual) 16 (10.0-50.0); Monocytes % (manual) 8 (0-12)
[2022-02-16 12:57] LABS: Cholesterol 156 mg/dL (< 200)
[2022-02-16 13:00] LABS: HDL Cholesterol 39 mg/dL (40-59); LDL Cholesterol 124 mg/dL (< 100); Triglycerides 161 mg/dL (< 150)
[2022-02-16] MEDS ORDERED: PANTOPRAZOLE 40 MG/10 ML VIAL INJ IV ONE (13:00)
[2022-02-16 13:05] VITALS: BP 92/51
[2022-02-16] MEDS ORDERED: SODIUM BICARBONATE 8.4 % INJ 50ML VIAL IV ONE ×3 (14:45→17:53)
[2022-02-16 14:52] VITALS: BP 103/49
[2022-02-16 15:54] VITALS: BP 87/36
[2022-02-16] MEDS ORDERED: ALBUMIN 25% 100 ML IV ONE ×2 (17:37→17:45)
[2022-02-16] MEDS ORDERED: HETASTARCH 500 ML IV ONE ×2 (17:40→17:45)
[2022-02-16] MEDS ORDERED: PHENYLEPHRINE IV 250 ML IV SCH (17:45)
[2022-02-16] MEDS ORDERED: EPINEPHrine HCL 250 ML IV ONE (17:52)
[2022-02-16] MEDS ORDERED: VASOPRESSIN 50 UNITS in D5W 5% 247.5 ML IV SCH (18:00)
[2022-02-16] MEDS ORDERED: EPINEPHrine HCL 250 ML IV SCH (18:00)
[2022-02-16 18:03] VITALS: BP 66/23
[2022-02-16] MEDS ORDERED: DEXTROSE 50% SYRINGE 100 ML IV ONE (18:15)
[2022-02-16 18:21] VITALS: BP 147/33
[2022-02-16] MEDS ORDERED: D5W/SOD CHLO 0.9% 1,000 ML IV SCH (19:15)
[2022-02-16] MEDS ORDERED: SODIUM BICARBONATE 50ML VIAL 150 ML in SOD CHL 0.45% 1,000 ML IV ONE (19:15)
[2022-02-17] MEDS ORDERED: cefTRIAXone 1GM/50ML D5W 50 ML IV SCH (09:00)
[2022-02-17] MEDS ORDERED: ENOXAPARIN SOD 40 MG/0.4 ML SYRINGE SC SCH (10:00)
[2022-02-17] MEDS ORDERED: AZITHROMYCIN 500MG/ 250ML 250 ML IV SCH (10:00)
[2022-02-17] MEDS ORDERED: PANTOPRAZOLE 40 MG/10 ML VIAL INJ IV SCH (10:00)
== END 2022-02-16 18:40 ==
LOC: EDBD 10:18 → ER 10:23 → TELE 11:58
PROVIDERS: ADMIT Nurse Practitioner Family; ATTEND Nurse Practitioner Family
PROC: 5A1935Z Respiratory Ventilation, Less than 24 Consecutive Hours (ICD-10-PCS; principal; 2022-02-16)
PROC: 0BH17EZ Insertion of Endotracheal Airway into Trachea, Via Natural or Artificial Opening (ICD-10-PCS; 2022-02-16)
PROC: 5A12012 Performance of Cardiac Output, Single, Manual (ICD-10-PCS; 2022-02-16)
DX: I21.4 Non-ST elevation (NSTEMI) myocardial infarction (principal); G93.41 Metabolic encephalopathy; J96.01 Acute respiratory failure with hypoxia; I50.43 Acute on chronic combined systolic (congestive) and diastolic (congestive) heart failure; Z68.43 Body mass index [BMI] 50.0-59.9, adult; N17.9 Acute kidney failure, unspecified; K92.2 Gastrointestinal hemorrhage, unspecified; E78.5 Hyperlipidemia, unspecified; Z20.822 Contact with and (suspected) exposure to COVID-19; D64.9 Anemia, unspecified; E66.01 Morbid (severe) obesity due to excess calories; I11.0 Hypertensive heart disease with heart failure; I48.91 Unspecified atrial fibrillation; J44.9 Chronic obstructive pulmonary disease, unspecified; Z80.0 Family history of malignant neoplasm of digestive organs; Z80.3 Family history of malignant neoplasm of breast; Z82.49 Family history of ischemic heart disease and other diseases of the circulatory system; Z83.3 Family history of diabetes mellitus; Z87.442 Personal history of urinary calculi
CPT/HCPCS: 36415; 36556; 36600; 71045; 80053; 80061; 80320; 82805; 82962; 83605; 83735; 83880; 84443; 84484; 85007; 85027; 85379; 86850; 86900; 86901; 87040; 87070; 87205; 87426; 92950; 93005; 93306; 94002; 96365; 99291; C9113; G0378; J0171; J0330; J0696; J2250; J7060; P9047